=== PATIENT | female | born 1970 | race Caucasian/White ===

== ENCOUNTER 2020-09-10 10:38 | Inpatient (IN) ==
[2020-09-10] MEDS ORDERED: cefTRIAXone SODIUM 2,000 MG in DEXTROSE 5% 50 ML IV SCH (12:00)
[2020-09-10] MEDS ORDERED: ONDANSETRON INJ 2 MG/ML 2 ML VIAL IV STA ×2 (12:05→15:14)
[2020-09-10] MEDS ORDERED: MoRPHine SULFATE 10 MG/ML CARP/VIAL IV STA (12:05)
[2020-09-10] MEDS ORDERED: SODIUM CHLORIDE 0.9% 1000ML 1,000 ML IV SCH (12:06)
[2020-09-10 12:25] LABS: Basophils # (auto) 0.01 K/uL (0-0.2); Basophils % (auto) 0.1 %; Eosinophils # (auto) 0.01 K/uL (0-0.5); Eosinophils % (auto) 0.1 %; Hematocrit (blood only) 46.3 % (37-47); Hemoglobin 15.8 g/dL (12.0-16.0); Immature Granulocytes # (auto) 0.12 K/uL (0.00-0.02); Immature Granulocytes % (auto) 0.9 %; Lymphocytes % (auto) 4.7 %; Mean Corpuscular Hemoglobin 31.7 pg (25-34); Mean Corpuscular Hgb Conc 34.1 g/dL (32-36); Mean Corpuscular Volume 92.8 fL (80-100); Mean Platelet Volume 9.6 fL (7.4-10.4); Monocytes # (auto) 0.19 K/uL (0.11-0.59); Monocytes % (auto) 1.5 %; Neutrophils # (auto) 11.85 K/uL (1.4-6.5); Neutrophils % (auto) 92.7 %; Platelet Count 159 K/uL (130-400); RDW Coefficient of Variation 13.1 % (11.5-14.5); RDW Standard Deviation 44.8 fL (36.4-46.3); Red Blood Count 4.99 M/uL (4.2-5.4); White Blood Count 12.78 K/uL (4.8-10.8)
--- NOTE | 2020-09-10 12:25 | Emergency Department Note ---
Impression & Plan Calculus of proximal left ureter, Acute left flank pain, Leukocytosis, Elevated serum creatinine ED Provider Note CHIEF COMPLAINT: Left flank pain x4 days HISTORY OF PRESENT ILLNESS: Patient is a 50-year-old female with longstanding history of kidney stones who presents the emergency department for evaluation of left flank pain. Her symptoms started about 4 days ago, were initially managea ble, and even got a little bit better over the weekend, then increased markedly at 0400 today. She is nauseous but not vomiting. She notes a constant, aching pain in the left low back that radiates to the left lower quadrant. She tried taking some Toradol without relief. She notes some dysuria, and did have a low- grade fever, 100.9 this morning. She does have a history of diverticulitis, and admits that she feels like this is her kidney stone pain, but could also be diverticulitis. She does also have a history of complicated UTIs and sepsis. She currently rates her pain a 10/10. She is status post hysterectomy and cholecystectomy. REVIEW OF SYSTEMS: Review of systems as per HPI. All other systems reviewed were negative. 10 systems reviewed. PMH: Electronic medical records are reviewed and summarized as above/below. See Problem List. SOCIAL HISTORY: Patient lives at home. Smoker. PHYSICAL EXAM: Vital Signs: Reviewed Nurse's notes. CONSTITUTIONAL: Patient is an uncomfortable appearing 50-year-old female who is awake and alert and in mild distress due to her stated complaint. EYES: Pupils equal, round, reactive to light and accommodation. EOMs intact without nystagmus. Sclera are anicteric. ENT: Tympanic membranes intact, with normal landmarks. External canals are clear. Oral and nasopharynx are clear. Mucous membranes are moist, no lesions, tongue and gums appear normal. CARDIOVASCULAR: Regular rate and rhythm. Peripheral pulses easily palpable. RESPIRATORY: Breath sounds equal and clear to auscultation. ABDOMEN: Bowel sounds are present. Well-healed surgical scars are noted. Abdomen is soft, nondistended, nontender to percussion throughout, mildly tender to palpation in the left midabdomen. No guarding or rebound. INTEGUMENTARY: No lesions or rash, normal skin turgor. LYMPH: No lymphadenopathy. EMERGENCY DEPARTMENT COURSE: The patient was seen and assessed as above. Old records were reviewed, including her recent outpatient urology visits. She presents the emergency department for evaluation of acute left flank pain. She reports a fever at home. IV lock was initiated and laboratory studies were collected. CBC with differential, urinalysis and CMP were drawn. She was made NPO. She was given morphine 6 mg IV, Zofran 4 mg IV and given a liter bolus of normal saline solution, then 250 cc/h. Initially, KUB and retroperitoneal ultrasound were planned. Laboratory studies noted an elevated white count at 12,700, with left shift and bandemia noted. H&H is normal. Electrolytes are within normal limits. BUN and creatinine elevated at 21 and 1.36, which is new for the patient. Remainder of her transaminases are normal. Urine microscopy while not a clean-catch sample, is nitrate positive, 1+ leukocyte esterase and 10 to the 30 WBCs with 4+ bacteria. Culture is pending. Patient had not yet gone for imaging studies. Laboratory studies were reviewed with her. At this point, given the high white count and the urinalysis findings as well as the elevated kidney functions, I elected just to go with a CT with contrast. CT scan notes a 6 mm obstructing stone within the left UPJ with moderate left hydronephrosis. Bilateral nephrolithiasis noted. No bowel wall thickening or obstruction, no evidence for acute diverticulitis. Patient was reassessed. CT scan findings were reviewed with her. She was still feeling nauseous and pain with was beginning to return. She received an additional morphine 4 mg IV and Zofran 4 mg IV. With the laboratory findings as discussed above, did elect to cover her with ceftriaxone 2 g IV. Patient is concerned regarding the size and location of the stone, in the past she has had difficulty and does not think that she can pass the stone on her own. She also does not feel that she will be able to go home as uncomfortable as she is. I did speak with [facility], Dr. Adhikari, who recommended medical admission for IV antibiotics and hydration, there is not a need for emergent urologic intervention at this time, they will be happy to see the patient in the hospital. Consultation was placed with the [facility] Hospitalist service for further care and management. Please refer to admission H&P and orders for further information. Differential diagnoses entertained included Renal colic, UTI, pyelonephritis, diverticulitis, bowel obstruction, scarring or adhesions, infections, inflammatory bowel disease, among others. Past Med/Surg History Medical History Anxiety Chronic back pain GERD (gastroesophageal reflux disease) History of diverticulitis History of gastric polyp with biopsy Hx of hemorrhoids with banding Hx of sepsis spring 2018 r/t kidney stones Hyperlipidemia no meds Kidney stones Surgical History History of cholecystectomy History of colonoscopy History of dilatation and curettage History of esophagogastroduodenoscopy (EGD) History of hysterectomy History of lithotripsy 01/20/18 - MAC #3, ETT #7.0, HiLo, Grade 2 View History of strabismus surgery A CHILD Hx of cystoscopy [place] teeth extracted Family History Sister FHx: alpha 1 antitrypsin deficiency FHx: colon cancer, Onset Age: 44 Mother Diabetes Hypertension Father Diabetes Heart disease Hypertension Uncle Colon cancer Aunt Lung disease Social History Smoking Status: Current every day smoker Tobacco Type: Cigarettes Cigarettes Per Day: 20; Second Hand Exposure: No; Hx Alcohol Use: No Hx Substance Use: No Preferred Language: Greenlandic Communication Ability: Effective Visual Impairment: No Limitations Musical Instrument Maker Or Repairer Required: No Beliefs That Will Affect Care: None marital status: Current Living Situation: Family current occupational status: employed 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 Feels Safe at Home: Yes Assistive Devices: Glasses Allergies Allergies Allergy/AdvReac Type Severity Reaction Status Date / Time broccoli Allergy Severe sob and Verified 09/10/20 12:22 all over body swelling doxycycline Allergy Intermediate Vomiting, Verified 09/10/20 12:22 swelling, hives Home Meds Home Medications Medication Instructions Recorded Confirmed Lactobacillus reuteri 100 cell PO QAM 01/10/20 09/10/20 cholecalciferol (vitamin D3) 10 10 mcg PO QAM 07/02/20 09/10/20 mcg (400 unit) capsule acetaminophen [Tylenol] 325 mg PO QID PRN 07/23/20 09/10/20 calcium carbonate [Tums] 300 mg PO DAILY PRN 07/23/20 09/10/20 Results & Data (ED) Vital Signs Vital Signs - 24 hr 09/10/20 11:16 09/10/20 11:54 09/10/20 13:05 Temperature 37.3 C 37.2 C Temperature Source Skin Oral Pulse Rate 128 H Pulse Rate [Right] 91 H 66 Pulse Rhythm Regular Pulse Rhythm [Right] Regular Pulse Strength Normal Pulse Strength [Right] Normal Respiratory Rate 20 20 20 Respiratory Effort / Characteristics Non-Labored Spontaneous Non-Labored Spontaneous Non-Labored Spontaneous Respiratory Depth Normal Normal Normal Respiratory Pattern Regular Blood Pressure 111/68 Blood Pressure [Right Arm] 115/79 116/79 Blood Pressure Mean 82 Blood Pressure Mean [Right Arm] 91 91 Blood Pressure Position [Right Arm] Lying Lying Pulse Oximetry 94 99 99 Oxygen Delivery Method Room Air Room Air Room Air Sepsis Recent Fever Within 48 Hours No Sepsis New/Unexplained Change in Mental Status N/A Sepsis Action Taken by Nursing No Action Required 09/10/20 16:16 09/10/20 16:27 Temperature Temperature Source Pulse Rate 102 H Pulse Rate [Right] 91 H Pulse Rhythm Pulse Rhythm [Right] Regular Pulse Strength Pulse Strength [Right] Normal Respiratory Rate 14 20 Respiratory Effort / Characteristics Non-Labored Spontaneous Respiratory Depth Normal Respiratory Pattern Blood Pressure 117/69 Blood Pressure [Right Arm] 101/62 Blood Pressure Mean 85 Blood Pressure Mean [Right Arm] 75 Blood Pressure Position [Right Arm] Lying Pulse Oximetry 96 94 Oxygen Delivery Method Room Air Sepsis Recent Fever Within 48 Hours Sepsis New/Unexplained Change in Mental Status Sepsis Action Taken by Longterm Medications Current Medication List: was personally reviewed by me Laboratory Data Attestation: I reviewed the patient's lab results. Result diagrams: 09/10/20 11:48 09/10/20 11:48 Lab Results 09/10/20 09/10/20 09/10/20 Range/Units 11:48 11:48 11:48 WBC 12.78 H (4.8-10.8) K/uL RBC 4.99 (4.2-5.4) M/uL Hgb 15.8 (12.0-16.0) g/dL Hct 46.3 (37-47) % MCV 92.8 (80-100) fL MCH 31.7 (25-34) pg MCHC 34.1 (32-36) g/dL RDW Std Deviation 44.8 (36.4-46.3) fL RDW Coeff of Luan 13.1 (11.5-14.5) % Plt Count 159 (130-400) K/uL MPV 9.6 (7.4-10.4) fL Immature Gran % (Auto) 0.9 % Neut % (Auto) 92.7 % Lymph % (Auto) 4.7 % [place] % (Auto) 1.5 % Eos % (Auto) 0.1 % Baso % (Auto) 0.1 % Neut # (Auto) 11.85 H (1.4-6.5) K/uL Lymph # (Auto) 0.60 L (1.2-3.4) K/uL [place] # (Auto) 0.19 (0.11-0.59) K/uL Eos # (Auto) 0.01 (0-0.5) K/uL Baso # (Auto) 0.01 (0-0.2) K/uL Immature Gran # (Auto) 0.12 H (0.00-0.02) K/uL Sodium 140 (136-145) mmol/L Potassium 3.6 (3.5-5.1) mmol/L Chloride 110 H (98-107) mmol/L Carbon Dioxide 23 (21-32) mmol/L Anion Gap 7.0 (3-11) BUN 21 H (7-18) mg/dl Creatinine 1.36 H (0.6-1.2) mg/dl Est Cr Clr Drug Dosing 51.7 ml/min Est GFR ( Amer) 53.2 ml/min Est GFR (Non-Af Amer) 45.9 ml/min BUN/Creatinine Ratio 15.5 (10-20) Glucose 110 H (70-99) mg/dl Calcium 9.1 (8.5-10.1) mg/dl Total Bilirubin 0.8 (0.2-1) mg/dl AST 75 H (15-37) U/L ALT 65 (12-78) U/L Alkaline Phosphatase 80 (45-117) U/L Total Protein 7.1 (6.4-8.2) gm/dl Albumin 3.9 (3.4-5.0) gm/dl Globulin 3.2 (2.5-4.0) gm/dl Albumin/Globulin Ratio 1.2 (0.9-2) Urine Color Yellow Urine Appearance Clear (Clear) Urine pH 5.5 (4.5-7.5) Ur Specific [place] 1.018 (1.000-1.030) Urine Protein 1+ H (Negative) Urine Glucose (UA) Negative (Negative) Urine Ketones Negative (Negative) Urine Blood Trace H (Negative) Urine Nitrite Positive A (Negative) Urine Bilirubin Negative (Negative) Urine Urobilinogen Negative (Negative) Ur Leukocyte Esterase 1+ H (Negative) Urine WBC (Auto) 10-30 H (0-5) /hpf Urine RBC (Auto) 0-4 (0-4) /hpf U Hyaline Cast (Auto) 1-5 (0-5) /lpf U Epithel Cells (Auto) >30 H (0-5) /lpf Urine Bacteria (Auto) 4+ H (Negative) COVID-19 Eval Order SARS-CoV-2 (PCR) (Negative) 09/10/20 09/10/20 Range/Units 16:46 16:46 WBC (4.8-10.8) K/uL RBC (4.2-5.4) M/uL Hgb (12.0-16.0) g/dL Hct (37-47) % MCV (80-100) fL MCH (25-34) pg MCHC (32-36) g/dL RDW Std Deviation (36.4-46.3) fL RDW Coeff of Luan (11.5-14.5) % Plt Count (130-400) K/uL MPV (7.4-10.4) fL Immature Gran % (Auto) % Neut % (Auto) % Lymph % (Auto) % [place] % (Auto) % Eos % (Auto) % Baso % (Auto) % Neut # (Auto) (1.4-6.5) K/uL Lymph # (Auto) (1.2-3.4) K/uL [place] # (Auto) (0.11-0.59) K/uL Eos # (Auto) (0-0.5) K/uL Baso # (Auto) (0-0.2) K/uL Immature Gran # (Auto) (0.00-0.02) K/uL Sodium (136-145) mmol/L Potassium (3.5-5.1) mmol/L Chloride (98-107) mmol/L Carbon Dioxide (21-32) mmol/L Anion Gap (3-11) BUN (7-18) mg/dl Creatinine (0.6-1.2) mg/dl Est Cr Clr Drug Dosing ml/min Est GFR ( Amer) ml/min Est GFR (Non-Af Amer) ml/min BUN/Creatinine Ratio (10-20) Glucose (70-99) mg/dl Calcium (8.5-10.1) mg/dl Total Bilirubin (0.2-1) mg/dl AST (15-37) U/L ALT (12-78) U/L Alkaline Phosphatase (45-117) U/L Total Protein (6.4-8.2) gm/dl Albumin (3.4-5.0) gm/dl Globulin (2.5-4.0) gm/dl Albumin/Globulin Ratio (0.9-2) Urine Color Urine Appearance (Clear) Urine pH (4.5-7.5) Ur Specific [place] (1.000-1.030) Urine Protein (Negative) Urine Glucose (UA) (Negative) Urine Ketones (Negative) Urine Blood (Negative) Urine Nitrite (Negative) Urine Bilirubin (Negative) Urine Urobilinogen (Negative) Ur Leukocyte Esterase (Negative) Urine WBC (Auto) (0-5) /hpf Urine RBC (Auto) (0-4) /hpf U Hyaline Cast (Auto) (0-5) /lpf U Epithel Cells (Auto) (0-5) /lpf Urine Bacteria (Auto) (Negative) COVID-19 Eval Order Covid19 at [facility] SARS-CoV-2 (PCR) NEGATIVE (Negative) Administered Medications Sodium Chloride (Nss 1000ml) 1,000 mls @ 250 mls/hr IV .Q4H DEBRA Stop: 10/10/20 12:14 Last Admin: 09/10/20 19:43 Dose: 250 mls/hr Documented by: [id number] Infusion: 09/10/20 18:32 Dose: 0 mls/hr Documented by: [id number] Admin: 09/10/20 14:25 Dose: 250 mls/hr Documented by: [id number] Discontinued Medications Sodium Chloride (Nss 1000ml) 1,000 mls @ 999 mls/hr IV .Q1H1M DEBRA Stop: 09/10/20 13:06 Last Infusion: 09/10/20 13:21 Dose: 0 mls/hr Documented by: [id number] Admin: 09/10/20 12:19 Dose: 999 mls/hr Documented by: [id number] Ceftriaxone Sodium (Rocephin) 2,000 mg in 70 mls @ 140 mls/hr IV NOW STA Stop: 09/10/20 15:43 Last Infusion: 09/10/20 16:13 Dose: 0 mls/hr Documented by: [id number] Admin: 09/10/20 15:29 Dose: 140 mls/hr Documented by: [id number] Ioversol (Optiray 320 100ml) 93 ml IV ONCE ONE Stop: 09/10/20 14:12 Last Admin: 09/10/20 14:12 Dose: 93 ml Documented by: [id number] Morphine Sulfate (Morphine Sulfate 10 Mg/Ml Carp/Vial) 6 mg IV NOW STA Stop: 09/10/20 12:06 Last Admin: 09/10/20 12:13 Dose: 6 mg Documented by: [id number] Morphine Sulfate (Morphine Sulfate 4 Mg/Ml 1 Ml Carp\Vial) 4 mg IV Q1H PRN PRN Reason: Pain Stop: 09/24/20 12:04 Last Admin: 09/10/20 16:49 Dose: 4 mg Documented by: [id number] Admin: 09/10/20 15:29 Dose: 4 mg Documented by: [id number] Admin: 09/10/20 13:57 Dose: 4 mg Documented by: [id number] Ondansetron HCl (Ondansetron Inj 2 Mg/Ml 2 Ml Vial) 4 mg IV NOW STA Stop: 09/10/20 12:06 Last Admin: 09/10/20 12:13 Dose: 4 mg Documented by: [id number] Ondansetron HCl (Ondansetron Inj 2 Mg/Ml 2 Ml Vial) 4 mg IV NOW STA Stop: 09/10/20 15:15 Last Admin: 09/10/20 15:29 Dose: 4 mg Documented by: [id number] Imaging Data Attestation: I personally reviewed and interpreted this imaging study as fo llows: Radiologist's Impression: Abdomen/Pelvis CT 09/10/20 13:[address] WITH IV CONTRAST CT DOSE: 679.10 mGy.cm HISTORY: LEFT FLANK PAIN, FEVER, STONES VS TIC DISEASE TECHNIQUE: Multiaxial CT images of the abdomen and pelvis were performed fo llowing the use of intravenous contrast. A dose lowering technique was utilized adhering to the principles of ALARA. COMPARISON STUDY: Abdomen and pelvis CT 07/04/2020. FINDINGS: Mild dependent changes seen within the right lung base. There is a sma ll hiatus hernia. No pneumoperitoneum. No pneumatosis. No fractures within the visualized osseous structures. Mild hepatic steatosis. Mild intrahepatic bile duct dilatation, unchanged. This is likely due to the patient's postcholecystectomy state. The main portal vein is patent. The pancreas, adrenal glands, and spleen are unremarkable. Multiple bilateral renal calculi suggesting medullary nephrocalcinosis. Dominant stone within the right kidney measures 7 mm. Dominant stone within the lower pole the left kidney measures 7 mm. Stable 1.5 cm exophytic right renal cyst. No retroperitoneal lymphadenopathy. Mild calcified plaque within the normal caliber abdominal aorta. There is a 4 mm hypodense lesion within the upper pole the left kidney. This is densely too small to characterize but favors a cyst. There is left perinephric edema and a delayed left nephrogram secondary to the moderate left hydronephrosis. There is a 6 mm obstructing stone within the left ureteropelvic junction. No right-sided hydronephrosis. The bladder is unremarkable. The uterus is surgically absent. Colonic diverticulosis. No evidence for acute diverticulitis. No bowel wall thickening or obstruction. Normal appendix. IMPRESSION: 1. A 6 mm obstructing stone within the left ureteropelvic junction resulting in moderate left hydronephrosis. 2. 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 3. Postoperative changes as described above. 4. No bowel wall thickening or obstruction. 5. Colonic diverticulosis. ACT 112: Negative or not required by law. Electronically signed by: Francisco J Mendoza M.D. 09/10/2020 2:45 PM Discharge Plan Visit Data Chief Complaint: Kidney Stone Stated Complaint: KIDNEY STONE ED Provider: Maurice Fernandez ED Midlevel Provider: Ron Nava Discharge Problem: Calculus of proximal left ureter, Acute left flank pain, Leukocytosis, Elevated serum creatinine Patient Disposition: Being Evaluated by Hospitalist Discharge Instructions Interventions: ED Discharge Assessment Last Done: 09/10/20 19:26
[2020-09-10 12:42] LABS: Albumin Level 3.9 gm/dl (3.4-5.0); BUN Creatinine Ratio 15.5 (10-20); Calcium 9.1 mg/dl (8.5-10.1); Creatinine Clr Calc Pharmacy 51.7 ml/min; Est GFR (African American) 53.2 ml/min; Est GFR (Non-African American) 45.9 ml/min; Potassium 3.6 mmol/L (3.5-5.1)
[2020-09-10 12:44] LABS: Appearance Urine Clear (Clear); Bacteria Urine Automated 4+ (Negative); Bilirubin Urine Negative (Negative); Blood Urine Trace (Negative); Color Urine Yellow; Epithelial Cell Urine Auto >30 /lpf (0-5); Glucose Urine UA Negative (Negative); Ketones Urine Negative (Negative); Leukocyte Esterase Urine 1+ (Negative); Nitrite Urine Positive (Negative); Protein Urine 1+ (Negative); RBC Urine Automated 0-4 /hpf (0-4); Specific Gravity Urine 1.018 (1.000-1.030); Urobilinogen Urine Negative (Negative); pH Urine 5.5 (4.5-7.5)
[2020-09-10 12:45] LABS: Albumin Globulin Ratio 1.2 (0.9-2); Bilirubin,Total 0.8 mg/dl (0.2-1); Globulin 3.2 gm/dl (2.5-4.0); Total Protein 7.1 gm/dl (6.4-8.2)
[2020-09-10] MEDS: MoRPHine SULFATE 4 MG/ML 1 ML CARP\\VIAL IV PRN ×3 (13:57→16:49)
[2020-09-10] MEDS ORDERED: OPTIRAY 320 100ml IV ONE (14:11)
[2020-09-10] MEDS: SODIUM CHLORIDE 0.9% 1000ML 1,000 ML IV SCH ×3 (14:25→21:21)
--- NOTE | 2020-09-10 14:46 | CT Scan Report ---
ABDOMEN AND PELVIS CT WITH IV CONTRAST CT DOSE: 679.10 mGy.cm HISTORY: LEFT FLANK PAIN, FEVER, STONES VS TIC DISEASE TECHNIQUE: Multiaxial CT images of the abdomen and pelvis were performed following the use of intrave nous contrast. A dose lowering technique was utilized adhering to the principles of ALARA. COMPARISON STUDY: Abdomen and pelvis CT 07/04/2020. FINDINGS: Mild dependent changes seen within the right lung base. There is a small hiatus hernia. No pneumoperitoneum. No pneumatosis. No fractures within the visualized osseous structures. Mild hepatic steatosis. Mild intrahepatic bile duct dilatation, unchanged. This is likely due to the patient's po stcholecystectomy state. The main portal vein is patent. The pancreas, adrenal glands, and spleen are unremarkable. Multiple bilateral renal calculi suggesting medullary nephrocalcinosis. Dominant stone within the right kidney measures 7 mm. Dominant stone within the lower pole the left kidney measures 7 mm. Stable 1.5 cm exophytic right renal cyst. No retroperitoneal lymphadenopathy. Mild calcified p laque within the normal caliber abdominal aorta. There is a 4 mm hypodense lesion within the upper po le the left kidney. This is densely too small to characterize but favors a cyst. There is left perine phric edema and a delayed left nephrogram secondary to the moderate left hydronephrosis. There is a 6 mm obstructing stone within the left ureteropelvic junction. No right-sided hydronephrosis. The blad osman is unremarkable. The uterus is surgically absent. Colonic diverticulosis. No evidence for acute d iverticulitis. No bowel wall thickening or obstruction. Normal appendix. IMPRESSION: 1. A 6 mm obstructing stone within the left ureteropelvic junction resulting in moderate left hydrone phrosis. 2. 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 3. Postoperative changes as described above. 4. No bowel wall thickening or obstruction. 5. Colonic diverticulosis. ACT 112: Negative or not required by law. Electronically signed by: Francisco J Mendoza M.D. 09/10/2020 2:45 PM
[2020-09-10] MEDS ORDERED: cefTRIAXone SODIUM 2,000 MG/70 ML BAG IV STA (15:14)
[2020-09-10] MEDS ORDERED: ONDANSETRON INJ 2 MG/ML 2 ML VIAL IV PRN (18:09)
[2020-09-10] MEDS ORDERED: MoRPHine SULFATE 4 MG/ML 1 ML CARP\\VIAL IV PRN (18:19)
--- NOTE | 2020-09-10 18:21 | History & Physical Report ---
Date of Service September 10, 2020 Assessment & Plan (1) Calculus of proximal left ureter: possible UTI due to abnormal urine. will place on antibiotics: ceftriaxone continue morphine and zofran patient will benefit from stent. will consult urology (2) Acute left flank pain: as above. (3) Tobacco abuse: will place nicotine patch. History of Present Illness Chief Complaint: left kidney stone Primary Care Provider: Zhao Chowdary MD 50 yo female with recurrent kidney stones from 1990. She has some of the pass spontaneously while others have required lithotripsy. She was recently treated with lithotripsy for a right kidney stone about a month ago. Patient reports that she has had general malaise, dull left flank pain that radiates to her groin with N/V and subjective fever for the past 4 days. She reports that due to the nausea, she has not been able to tolerate anything by mouth and is not interested in eating at this momenet. CT scan of the abdomen and pelvis showed a 6 mm obstructing kidney stone in the left ureteropelvic junction resulting in hydronephrosis. Urology was informed, and recommended to be admitted to the hospitalist [facility] and they will be consulted. Allergies Allergy/AdvReac Type Severity Reaction Status Date / Time broccoli Allergy Severe sob and Verified 09/10/20 12:22 all over body swelling doxycycline Allergy Intermediate Vomiting, Verified 09/10/20 12:22 swelling, hives Home Medications Medication Instructions Recorded Confirmed Type Lactobacillus reuteri 100 cell PO QAM 01/10/20 09/10/20 History cholecalciferol (vitamin D3) 10 10 mcg PO QAM 07/02/20 09/10/20 History mcg (400 unit) capsule acetaminophen [Tylenol] 325 mg PO QID PRN 07/23/20 09/10/20 History calcium carbonate [Tums] 300 mg PO DAILY PRN 07/23/20 09/10/20 History Past Med/Surg History Medical History Anxiety Chronic back pain GERD (gastroesophageal reflux disease) History of diverticulitis History of gastric polyp with biopsy Hx of hemorrhoids with banding Hx of sepsis spring 2018 r/t kidney stones Hyperlipidemia no meds Kidney stones Surgical History History of cholecystectomy History of colonoscopy History of dilatation and curettage History of esophagogastroduodenoscopy (EGD) History of hysterectomy History of lithotripsy 01/20/18 - MAC #3, ETT #7.0, HiLo, Grade 2 View History of strabismus surgery A CHILD Hx of cystoscopy [place] teeth extracted Family History Sister FHx: alpha 1 antitrypsin deficiency FHx: colon cancer, Onset Age: 44 Mother Diabetes Hypertension Father Diabetes Heart disease Hypertension Uncle Colon cancer Aunt Lung disease Social History Smoking Status: Current every day smoker Tobacco Type: Cigarettes Cigarettes Per Day: 20; Second Hand Exposure: No; Hx Alcohol Use: No Hx Substance Use: No Preferred Language: Italian Communication Ability: Effective Visual Impairment: No Limitations Mortgage Underwriter Required: No Beliefs That Will Affect Care: None marital status: Current Living Situation: Family current occupational status: 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 Feels Safe at Home: Yes Assistive Devices: None Review of Systems Constitutional: + fever and + anorexia Eyes: no diplopia Ear, Nose, Mouth, Throat: no ear pain and no ear trauma Respiratory: no cough Cardiovascular: no chest pain with activity Gastrointestinal: no bloating Genitourinary: + flank pain Musculoskeletal: no radicular pain Integumentary: no rash Neurologic: no falls Psychiatric: no hopelessness Endocrine: no polydipsia Hematologic / Lymphatic: no coagulopathy Physical Exam Constitutional: WD/WN, vitals as above well developed Eyes: PERRL, conjunctivae normal, anicteric sclerae ENMT: external ear and nose normal, oropharynx normal Neck: trachea midline, no thyromegaly Respiratory: normal respiratory effort, lungs clear to auscultation Cardiovascular: RRR, no murmur, no edema Gastrointestinal (Abdomen): normal bowel sounds, soft, nontender, no hepatosplenomegaly Musculoskeletal: no cyanosis or clubbing, extremities motor strength 5/5 Left CVA tenderness Neurologic: PERRL, EOMI, accommodation nl, no face palsy, no dysarthria Psychiatric: A+Ox3, euthymic affect Results & Data Results & Data ([facility]) Vital Signs (Past 12 Hours) Vital Signs Temp Pulse Pulse Resp BP BP Pulse Ox 09/10/20 16:27 102 H 20 117/69 94 09/10/20 16:16 91 H 14 101/62 96 09/10/20 13:05 66 20 116/79 99 09/10/20 11:54 37.2 C 91 H 20 115/79 99 09/10/20 11:16 37.3 C 128 H 20 111/68 94 PG Care Time/CCT Total # of Minutes Spent Total Time Spent with Patient: Total time spent is greater than 50% in coordination of care (as documented) at patient's floor/unit and/or counseling patient: Coding Level of Care Code 87528 Initial Inpt Care Lvl 2 Diagnoses Calculus of proximal left ureter N20.1 Acute left flank pain R10.9 Tobacco abuse Z72.0
--- NOTE | 2020-09-10 20:36 | Urology Consultation ---
Date of Consultation September 10, 2020 Assessment & Plan (1) Calculus of proximal left ureter: Patient has been admitted by the hospitalists proceeding as follows: She is noted to have acute kidney injury. I suspect that this is due to prerenal conditions such as poor oral intake along with her nausea vomiting. She is receiving IV fluids which should continue Urinalysis is suggestive of urinary tract infection and she has been placed on Rocephin which should continue Continue analgesics Continue antiemetics Due to the patient's reported fevers, acute kidney injury, continued pain, hypotension, and general lethargy there is concern the patient is becoming septic. Because of this I discussed case with Dr. Adhikari and he is planning on performing a cystoscopy with possible stent placement this evening. Patient has expressed her understanding and is in agreement. Additional recommendations were made based on operative findings and patient's clinical course as it unfolds ATTENDING NOTE: Risks and benefits discussed at length for procedure. These include bleeding, infection, injury to surrounding tissues or organs, and risks associated with anesthesia. Patient states understanding and agrees to proceed. Will sign consent and proceed. Agree with above. Independently reviewed and evaluated. Plan proceed with Cystoscopy and left stent. History of Present Illness Reason for Consultation: Nephrolithiasis Attending Physician: Chris Madison History of Present Illness Is a 50-year-old female with a longstanding history of kidney stones. The patient says that she has been having trouble with this since 1990. She says she has had episodes where she has been able to pass the stones but she has also had episodes where she required lithotripsy. Her most recent lithotripsy prior to this admission was in mid July of this year at which time she had a lithotripsy performed secondary to an 8 mm right-sided kidney stone. Patient presented to the hospital this admission secondary to 4 days of left-sided flank pain that radiated to her groin. She has had associated nausea vomiting and has had fever as high as 101. She says the pain would come and go but became so severe that she presented to the emergency department.She notes that she has not eaten anything solid in approximate 24 hours. She said that over the past several hours she did drink some liquids however due to her nausea vomiting she has thrown it all up. Since admission the patient has had labs and imaging which independently reviewed. CT scan of the abdomen and pelvis showed a 6 mm obstructing kidney stone in the left ureteropelvic junction resulting in hydronephrosis. She did have labs where her white blood cell count was noted to be 12.7. Her hemoglobin, hematocrit, platelet count were within normal range. Chemistry profile showed her sodium and potassium were both within normal range. BUN and creatinine were both elevated at 21 and 1.3. A Covid test was performed and was noted to be negative. She did have a urinalysis that showed positive nitrate, positive leukocyte Estrace, and 10-30 white blood cells per high-power field. She was also noted to have 4+ bacteria. At the time of my exam the patient was in pain and she appeared lethargic. Allergies Allergy/AdvReac Type Severity Reaction Status Date / Time broccoli Allergy Severe sob and Verified 09/10/20 12:22 all over body swelling doxycycline Allergy Intermediate Vomiting, Verified 09/10/20 12:22 swelling, hives Home Medications Medication Instructions Recorded Confirmed Type Lactobacillus reuteri 100 cell PO QAM 01/10/20 09/10/20 History cholecalciferol (vitamin D3) 10 10 mcg PO QAM 07/02/20 09/10/20 History mcg (400 unit) capsule acetaminophen [Tylenol] 325 mg PO QID PRN 07/23/20 09/10/20 History calcium carbonate [Tums] 300 mg PO DAILY PRN 07/23/20 09/10/20 History Patient History Medical History Anxiety Chronic back pain GERD (gastroesophageal reflux disease) History of diverticulitis History of gastric polyp with biopsy Hx of hemorrhoids with banding Hx of sepsis spring 2018 r/t kidney stones Hyperlipidemia no meds Kidney stones Surgical History History of cholecystectomy History of colonoscopy History of dilatation and curettage History of esophagogastroduodenoscopy (EGD) History of hysterectomy History of lithotripsy 01/20/18 - MAC #3, ETT #7.0, HiLo, Grade 2 View History of strabismus surgery A CHILD Hx of cystoscopy [place] teeth extracted Family History Sister FHx: alpha 1 antitrypsin deficiency FHx: colon cancer, Onset Age: 44 Mother Diabetes Hypertension Father Diabetes Heart disease Hypertension Uncle Colon cancer Aunt Lung disease Social History Smoking Status: Current every day smoker Tobacco Type: Cigarettes Cigarettes Per Day: 20; Second Hand Exposure: No; Do You Dip or Chew Tobacco: No; Tobacco Cessation Education Requested by Patient: No Hx Alcohol Use: No Hx Substance Use: No Preferred Language: Tamazight Communication Ability: Effective Visual Impairment: No Limitations Emergency Dispatch Operator Required: No Beliefs That Will Affect Care: None marital status: Current Living Situation: Family current occupational status: employed current occupation: [employer] Other Information That Helps Us Care for You: No Feels Safe at Home: Yes Safety Concerns: Feels Safe At This Time Assistive Devices: None Review of Systems Constitutional: + fever and + chills Eyes: no diplopia Ear, Nose, Mouth, Throat: no ear pain Respiratory: no cough and no dyspnea Cardiovascular: no chest pain Gastrointestinal: + nausea and + vomiting; no abdominal pain Genitourinary: + flank pain (Left-sided); no dysuria Musculoskeletal: + back pain (Left-sided flank pain) Integumentary: no rash Neurologic: no localized weakness Physical Exam Constitutional: well developed, well nourished and + ill appearing; no acute distress Eyes: no conjunctival abnormality ENMT: Ears: no hearing impairment Neck: trachea midline Respiratory: normal respiratory effort; no respiratory distress and no labored breathing Cardiovascular: Rate/Rhythm: regular rate and regular rhythm Gastrointestinal (Abdomen): Percussion/Palpation: abdomen soft; abdomen nontender Musculoskeletal: No calf tenderness Skin: no rashes, warm and dry Neurologic: moves all extremities Patient appears generally lethargic but does respond to verbal stimuli Psychiatric: Orientation: alert and oriented x 3 Affect: + flat affect Genitourinary: + CVA tenderness (Left-sided CVA tenderness noted with percussion) Results & Data ([facility]) Vital Signs (Past 12 Hours) Vital Signs Temp Pulse Pulse Resp BP BP Pulse Ox 09/10/20 19:38 36.5 C 85 14 97/55 L 93 09/10/20 16:27 102 H 20 117/69 94 09/10/20 16:16 91 H 14 101/62 96 09/10/20 13:05 66 20 116/79 99 09/10/20 11:54 37.2 C 91 H 20 115/79 99 09/10/20 11:16 37.3 C 128 H 20 111/68 94 PG Care Time/CCT Total # of Minutes Spent Total Time Spent with Patient: Total time spent is greater than 50% in coordination of care (as documented) at patient's floor/unit and/or counseling patient: Coding Level of Care Code 48368 Inpt Consult Level 5 Diagnoses Calculus of proximal left ureter N20.1
[2020-09-10] MEDS ORDERED: MIDAZOLAM HCL 1 MG/ML 2ML VIAL ONE (20:56)
[2020-09-10] MEDS ORDERED: fentaNYL citrate 100 MCG/2 ML VIAL ONE (20:56)
[2020-09-10] MEDS ORDERED: LIDOCAINE 2% 2 ML VIAL/AMP(20MG/ML) INFIL ONE (20:56)
[2020-09-10] MEDS ORDERED: PROPOFOL IV EMULSION 10 MG/ML 20 ML VIAL IV ONE (20:57)
--- NOTE | 2020-09-10 21:19 | Anesthesiology Consultation ---
Date of Service September 10, 2020 Assessment & Plan Chart Review Chart Review: Acceptable Risk for Surgery Consults Requested none History Surgery Operation Date: 09/10/20 21:00 Proposed Procedures p Cystoscopy, Left Ureteral Stent Insertion(Left) - Damon Adhikari DO Height/Weight Height: 5 ft 3 in Weight: 85 kg Allergies Allergy/AdvReac Type Severity Reaction Status Date / Time broccoli Allergy Severe sob and Verified 09/10/20 12:22 all over body swelling doxycycline Allergy Intermediate Vomiting, Verified 09/10/20 12:22 swelling, hives Medications Home Medications Medication Instructions Recorded Confirmed Last Taken Lactobacillus reuteri 100 cell PO QAM 01/10/20 09/10/20 08/09/20 cholecalciferol (vitamin D3) 10 10 mcg PO QAM 07/02/20 09/10/20 08/09/20 mcg (400 unit) capsule acetaminophen [Tylenol] 325 mg PO QID PRN 07/23/20 09/10/20 08/09/20 22:30 calcium carbonate [Tums] 300 mg PO DAILY PRN 07/23/20 09/10/20 Unknown Active Medications Generic Name Dose Route Start Last Admin Trade Name Freq PRN Reason Stop Dose Admin Sodium Chloride 1,000 mls @ 250 mls/hr 09/10/20 12:15 09/10/20 19:43 Nss 1000ml IV 10/10/20 12:14 250 mls/hr .Q4H DEBRA Administration NPO Date Last Intake of Fluids: 09/10/20 Last Intake of Fluids Comment: [place] Date Last Intake of Solids: 09/10/20 Last Intake of Solids Comment: crackers Past Medical History Medical History Anxiety Chronic back pain GERD (gastroesophageal reflux disease) History of diverticulitis History of gastric polyp with biopsy Hx of hemorrhoids with banding Hx of sepsis spring 2018 r/t kidney stones Hyperlipidemia no meds Kidney stones Past Family History Family History Sister FHx: alpha 1 antitrypsin deficiency FHx: colon cancer, Onset Age: 44 Mother Diabetes Hypertension Father Diabetes Heart disease Hypertension Uncle Colon cancer Aunt Lung disease Past Surgical History Surgical History History of cholecystectomy History of colonoscopy History of dilatation and curettage History of esophagogastroduodenoscopy (EGD) History of hysterectomy History of lithotripsy 01/20/18 - MAC #3, ETT #7.0, HiLo, Grade 2 View History of strabismus surgery A CHILD Hx of cystoscopy [place] teeth extracted Social History Smoking Status: Current every day smoker tobacco type: cigarettes Smoking cigarettes per day: 20 Do You Dip or Chew Tobacco: No Hx Alcohol Use: No Hx Substance Use: No substance use type: does not use Physical Exam Vital Signs Last Vital Signs Temp 36.5 C 09/10/20 19:38 Pulse 85 09/10/20 19:38 Resp 14 09/10/20 19:38 BP 97/55 L 09/10/20 19:38 Pulse Ox 93 09/10/20 19:38 Testing Laboratory Results 09/10/20 11:48 09/10/20 11:48 Urine Color Yellow 09/10/20 11:48 Urine Appearance Clear (Clear) 09/10/20 11:48 Urine pH 5.5 (4.5-7.5) 09/10/20 11:48 Ur Specific Roundup 1.018 (1.000-1.030) 09/10/20 11:48 Urine Protein 1+ (Negative) H 09/10/20 11:48 Urine Glucose (UA) Negative (Negative) 09/10/20 11:48 Urine Ketones Negative (Negative) 09/10/20 11:48 Urine Nitrite Positive (Negative) A 09/10/20 11:48 Ur Leukocyte Esterase 1+ (Negative) H 09/10/20 11:48 Urine WBC (Auto) 10-30 /hpf (0-5) H 09/10/20 11:48 Urine RBC (Auto) 0-4 /hpf (0-4) 09/10/20 11:48 U Hyaline Cast (Auto) 1-5 /lpf (0-5) 09/10/20 11:48 U Epithel Cells (Auto) >30 /lpf (0-5) H 09/10/20 11:48 Urine Bacteria (Auto) 4+ (Negative) H 09/10/20 11:48
--- NOTE | 2020-09-10 21:49 | Operative Report ---
PG Post Operative Report Pre & Post Diagnosis Obstructing Left Ureteral Stone Same Operation Date: 09/10/20 21:00 <No data on this case meets the specified criteria> I identified the patient and participated in the time-out.: Yes Procedure Cystoscopy with left retrograde pyelogram and left stent. 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 Specimens None Drains 6 Fr Multilength Anesthesia Type MAC Complications none Disposition Disposition: Recovery Room Indications Patient with obstruction. Risks and benefits discussed at length. Description of Procedure Patient was consented and brought back to the operating room. Patient was placed under anesthesia in the supine position and moved to the dorsal lithotomy position. Patient was prepped and draped in the regular sterile fashion. A time out was completed. A 30degree Cystoscope was placed into the bladder and the entire bladder was examined. The UO's were identified. The UO was cannulized with a catheter and a retrograde pyelogram was completed. A wire was then placed. With the wire in place, a 6 Fr Double J stent was placed. It was confirmed with fluoroscopy. With the stent in place, the bladder was emptied. The scope was removed. The patient was cleaned, aroused from anesthesia, and transferred to the pacu in stable condition having tolerated the procedure well with no complications. I was present and participated in all aspects of the procedure. The patient will be monitored in the PACU until transferred. Will plan to keep stent for 1-2 weeks and treat stone at that time. I attest to the content of the Intraoperative Record and any orders documented therein. Any exceptions are noted below.
--- NOTE | 2020-09-10 22:25 | Anesthesiology Progress Note ---
Date of Service September 10, 2020 Anesthesia Post Procedure Vital Signs Vital Signs: Temp Pulse Pulse Pulse Resp BP BP 09/10/20 22:15 37.3 C 88 16 109/75 09/10/20 22:05 82 16 97/56 L 09/10/20 21:55 37.3 C 88 18 83/60 L 09/10/20 19:38 36.5 C 85 14 09/10/20 16:27 102 H 20 117/69 09/10/20 16:16 91 H 14 09/10/20 13:05 66 20 09/10/20 11:54 37.2 C 91 H 20 09/10/20 11:16 37.3 C 128 H 20 111/68 BP Pulse Ox 09/10/20 22:15 94 09/10/20 22:05 94 09/10/20 21:55 96 09/10/20 19:38 97/55 L 93 09/10/20 16:27 94 09/10/20 16:16 101/62 96 09/10/20 13:05 116/79 99 09/10/20 11:54 115/79 99 09/10/20 11:16 94 Pain Intensity Left Flank: Pain Intensity: 8 Transfer of Care Handoff Completed per policy Notes Mental Status: alert / awake / arousable and participated in evaluation Patient Amnestic to Procedure: Yes Nausea / Vomiting: adequately controlled Pain: adequately controlled Airway Patency, RR, SpO2: stable & adequate BP & HR: stable & adequate Hydration State: stable & adequate Anesthetic Complications: no major complications apparent
[2020-09-11] MEDS: SODIUM CHLORIDE 0.9% 1000ML 1,000 ML IV SCH ×3 (03:13→10:47)
[2020-09-11 05:57] LABS: Hematocrit (blood only) 35.3 % (37-47); Hemoglobin 11.8 g/dL (12.0-16.0); Mean Corpuscular Hgb Conc 33.4 g/dL (32-36); Mean Corpuscular Volume 92.7 fL (80-100); Mean Platelet Volume 9.4 fL (7.4-10.4); Platelet Count 113 K/uL (130-400); RDW Coefficient of Variation 13.7 % (11.5-14.5); RDW Standard Deviation 46.9 fL (36.4-46.3); Red Blood Count 3.81 M/uL (4.2-5.4); White Blood Count 24.64 K/uL (4.8-10.8)
[2020-09-11 06:38] LABS: BUN Creatinine Ratio 20.6 (10-20); Calcium 7.1 mg/dl (8.5-10.1); Creatinine Clr Calc Pharmacy 64.6 ml/min; Est GFR (African American) 68.8 ml/min; Est GFR (Non-African American) 59.3 ml/min; Potassium 4.2 mmol/L (3.5-5.1)
--- NOTE | 2020-09-11 07:59 | Fluoroscopy Report ---
FL KUB CLINICAL HISTORY: LT CYSTO STENT COMPARISON STUDY: Abdomen and pelvis CT 09/10/2020. FLUOROSCOPY TIME: 12 seconds. FINDINGS: 5 fluoroscopic spot images of the abdomen and pelvis demonstrate retrograde opacification o f the left renal collecting system followed by placement of a left ureteral stent. The ureteral stent appears in good position. IMPRESSION: Fluoroscopy provided for left ureteral stent placement which appears in good position. ACT 112: Negative or not required by law. Electronically signed by: Francisco J Mendoza M.D. 09/11/2020 7:58 AM
[2020-09-11] MEDS: NICOTINE 14 MG/24 HR PATCH TD SCH (09:04)
--- NOTE | 2020-09-11 09:37 | Urology Progress Note ---
Date of Service September 11, 2020 Assessment & Plan (1) Calculus of proximal left ureter: (2) S/P ureteral stent placement: (3) UTI (urinary tract infection): 50 yo F POD #1 s/p cystoscopy and left stent placement. - Doing well, progressing as expected. - Afebrile, lab work reviewed - creatinine improved to 1.10, WBC increased to 24.64. - UC&S prelim growing gram negative bacilli - on IV Ceftriaxone, follow cultures. - Continue supportive care, antibiotics, and management per primary service. - Recommend home with PO antibiotics, Tamsulosin, prn Pyridium, and prn pain management when medically stable. - Expected clinical course reviewed, all questions answered. - Will arrange follow-up with our service outpatient for definitive stone management. Thank you for allowing us to participate in the acute care of Ms. Magallon. Please reconsult us with additional questions, concerns or changes in patient status. Admission and Anticipated Discharge Date Admission Date: September 10, 2020 Subjective 50 yo F POD #1 s/p cystoscopy and left stent placement. Patient seen and examined at bedside this AM. She is awake and sitting up in bedside chair. Notes fatigue, but overall feeling better today. Reports mild left flank discomfort. No abdominal pain. Voiding without difficulty, dysuria improved, notes some hematuria post-op. Low appetite this AM. No nausea or vomiting. No fever or chills. Chart review: Afebrile, creatinine 1.10, WBC 24.64, Hgb 11.8, UC&S prelim gram negative bacilli. On IV Ceftriaxone. No additional concerns today. Review of Systems Constitutional: as per Subjective / HPI Gastrointestinal: as per Subjective / HPI Genitourinary: as per Subjective / HPI Physical Exam Constitutional: well developed, well nourished and comfortable; no acute distress and not ill appearing Respiratory: normal respiratory effort and able to speak in complete sentences; no respiratory distress and no labored breathing Cardiovascular: Extremities: no pedal edema Gastrointestinal (Abdomen): Inspection/Auscultation: abdomen normal to inspection; abdomen not distended Percussion/Palpation: abdomen soft; abdomen nontender and no guarding Musculoskeletal: Head/Neck/Chest: normocephalic and head atraumatic Extremities: extremities normal to inspection Skin: no rashes, warm and dry Neurologic: moves all extremities and awake Psychiatric: Orientation: alert and oriented x 3 Genitourinary: no CVA tenderness Results & Data ([facility]) Vital Signs (Past 12 Hours) Vital Signs Temp Pulse Pulse Pulse Resp BP Pulse Ox 09/11/20 07:47 37.0 C 83 17 100/66 90 09/11/20 05:33 36.7 C 77 16 92/61 L 91 09/11/20 01:30 36.8 C 75 14 94/62 L 95 09/11/20 00:30 36.6 C 73 16 102/70 95 09/10/20 23:30 36.6 C 80 16 97/66 L 97 09/10/20 23:00 36.6 C 80 16 94/64 L 100 09/10/20 22:15 37.3 C 88 16 109/75 94 09/10/20 22:05 82 16 97/56 L 94 09/10/20 21:55 37.3 C 88 18 83/60 L 96 PG Care Time/CCT Total # of Minutes Spent Total Time Spent with Patient: Total time spent is greater than 50% in coordination of care (as documented) at patient's floor/unit and/or counseling patient: Coding Level of Care Code 79881 Subseq Hosp Care Lvl 2 Diagnoses Calculus of proximal left ureter N20.1 S/P ureteral stent placement Z96.0 UTI (urinary tract infection) N39.0
[2020-09-11] MEDS: cefTRIAXone SODIUM 2,000 MG in DEXTROSE 5% 50 ML IV SCH (13:20)
[2020-09-11] MEDS ORDERED: ACETAMINOPHEN 325 MG TAB ONE (14:49)
[2020-09-11] MEDS: ACETAMINOPHEN 325 MG TAB PO PRN ×2 (14:51→20:58)
[2020-09-11] MEDS ORDERED: OXYBUTYNIN CHLORIDE 5 MG TAB PO PRN (15:05)
--- NOTE | 2020-09-11 15:05 | Hospitalist Progress Note ---
Date of Service September 11, 2020 Assessment & Plan (1) Calculus of proximal left ureter: With a longstanding h/o multiple stones including calcium oxalate, apatite, and uric acid, recently started folowing with Nephrology but [facility] urine study pending. 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 with mild renal insufficiency down to 1.1 from 1.3 -add tylenol prn, add oxybutynin prn, and Flomax qhs -continue IV rocephin -f/u final Ur x result -will need outpt Urol f/u within 2 weeks for stone management -needs to f/u with Nephrology also for metabolic workup and management of numerous stones -follow CBC, BMP in AM (2) UTI (urinary tract infection): as above (3) Tobacco abuse: counseled on cessation -declines nicotine patch at this time but is ordered (4) Leukocytosis: as above 2/2 UTI, early sepsis follow CBC in AM (5) GERD (gastroesophageal reflux disease): had some last night but now improved TUMs prn (6) Obesity (BMI 30.0-34.9): BMI 33.2 would benefit from weight loss-defer to PCP management (7) DVT prophylaxis: add SCDs Dispo-continued stay, dc to home tomorrow if improving Admission and Anticipated Discharge Date Admission Date: September 10, 2020 Subjective Pt feeling "lousy." Has a mild headache and usually drinks caffeine daily. Also has left flank pain that feels stretching in nature. Is used to smoking but declines nicotine patch. Denies current CP or SOB. Feels a little "puffy" in hands and legs from IVFs. Review of Systems Review of Systems: All systems reviewed & are unremarkable except as noted in HPI & below Physical Exam Constitutional: WD/WN, vitals as above Eyes: + anicteric sclerae Neck: trachea midline, no thyromegaly Respiratory: normal respiratory effort, lungs clear to auscultation Cardiovascular: RRR, no murmur, no edema Chest (Breasts): Chest: normal inspection of chest Gastrointestinal (Abdomen): normal bowel sounds, soft, nontender, no hepatosplenomegaly Musculoskeletal: Extremities: extremities normal to inspection; no cyanosis and no clubbing Skin: no rashes, warm and dry Neurologic: moves all extremities and awake; no focal motor deficits Psychiatric: Orientation: alert and oriented x 3 Affect: + flat affect Lymphatic: no lymphedema Results & Data Results & Data ([facility]) Vital Signs (Past 12 Hours) Vital Signs Temp Pulse Resp BP Pulse Ox 09/11/20 11:17 36.8 C 80 17 96/62 L 90 09/11/20 07:47 37.0 C 83 17 100/66 90 09/11/20 05:33 36.7 C 77 16 92/61 L 91 Laboratory Results 09/11/20 09/11/20 09/10/20 Range/Units 05:41 05:41 16:46 WBC 24.64 H D (4.8-10.8) K/uL RBC 3.81 L (4.2-5.4) M/uL Hgb 11.8 L D (12.0-16.0) g/dL Hct 35.3 L (37-47) % MCV 92.7 (80-100) fL MCH 31.0 (25-34) pg MCHC 33.4 (32-36) g/dL RDW Std Deviation 46.9 H (36.4-46.3) fL RDW Coeff of Luan 13.7 (11.5-14.5) % Plt Count 113 L (130-400) K/uL MPV 9.4 (7.4-10.4) fL Sodium 142 (136-145) mmol/L Potassium 4.2 D (3.5-5.1) mmol/L Chloride 115 H (98-107) mmol/L Carbon Dioxide 24 (21-32) mmol/L Anion Gap 3.0 (3-11) BUN 23 H (7-18) mg/dl Creatinine 1.10 (0.6-1.2) mg/dl Est Cr Clr Drug Dosing 64.6 ml/min Est GFR ( Amer) 68.8 ml/min Est GFR (Non-Af Amer) 59.3 ml/min BUN/Creatinine Ratio 20.6 H (10-20) Glucose 115 H (70-99) mg/dl Calcium 7.1 L D (8.5-10.1) mg/dl COVID-19 Eval Order SARS-CoV-2 (PCR) NEGATIVE (Negative) 09/10/20 Range/Units 16:46 WBC (4.8-10.8) K/uL RBC (4.2-5.4) M/uL Hgb (12.0-16.0) g/dL Hct (37-47) % MCV (80-100) fL MCH (25-34) pg MCHC (32-36) g/dL RDW Std Deviation (36.4-46.3) fL RDW Coeff of Luan (11.5-14.5) % Plt Count (130-400) K/uL MPV (7.4-10.4) fL Sodium (136-145) mmol/L Potassium (3.5-5.1) mmol/L Chloride (98-107) mmol/L Carbon Dioxide (21-32) mmol/L Anion Gap (3-11) BUN (7-18) mg/dl Creatinine (0.6-1.2) mg/dl Est Cr Clr Drug Dosing ml/min Est GFR ( Amer) ml/min Est GFR (Non-Af Amer) ml/min BUN/Creatinine Ratio (10-20) Glucose (70-99) mg/dl Calcium (8.5-10.1) mg/dl COVID-19 Eval Order Covid19 at [facility] SARS-CoV-2 (PCR) (Negative) PG Care Time/CCT Total # of Minutes Spent Total Time Spent with Patient: Total time spent is greater than 50% in coordination of care (as documented) at patient's floor/unit and/or counseling patient: Coding Level of Care Code 34624 Subseq Hosp Care Lvl 2 Diagnoses Calculus of proximal left ureter N20.1 UTI (urinary tract infection) N39.0 Tobacco abuse Z72.0 Leukocytosis D72.829 GERD (gastroesophageal reflux disease) K21.9 Obesity (BMI 30.0-34.9) E66.9 DVT prophylaxis Z29.9
[2020-09-11] MEDS ORDERED: TAMSULOSIN HCL 0.4 MG CAP PO SCH (21:00)
[2020-09-12 05:36] LABS: Basophils # (auto) 0.02 K/uL (0-0.2); Basophils % (auto) 0.1 %; Eosinophils # (auto) 0.12 K/uL (0-0.5); Eosinophils % (auto) 0.6 %; Hemoglobin 11.8 g/dL (12.0-16.0); Immature Granulocytes # (auto) 0.13 K/uL (0.00-0.02); Immature Granulocytes % (auto) 0.6 %; Lymphocytes # (auto) 2.48 K/uL (1.2-3.4); Lymphocytes % (auto) 11.6 %; Mean Corpuscular Hgb Conc 33.7 g/dL (32-36); Mean Corpuscular Volume 91.9 fL (80-100); Mean Platelet Volume 9.7 fL (7.4-10.4); Monocytes # (auto) 1.21 K/uL (0.11-0.59); Monocytes % (auto) 5.7 %; Neutrophils # (auto) 17.39 K/uL (1.4-6.5); Neutrophils % (auto) 81.4 %; Platelet Count 125 K/uL (130-400); RDW Coefficient of Variation 13.5 % (11.5-14.5); RDW Standard Deviation 45.7 fL (36.4-46.3); Red Blood Count 3.81 M/uL (4.2-5.4); White Blood Count 21.35 K/uL (4.8-10.8)
[2020-09-12 06:05] LABS: Calcium 7.9 mg/dl (8.5-10.1); Creatinine Clr Calc Pharmacy 94.8 ml/min; Est GFR (African American) 109.2 ml/min; Est GFR (Non-African American) 94.3 ml/min; Potassium 3.5 mmol/L (3.5-5.1)
[2020-09-12] MEDS: NICOTINE 14 MG/24 HR PATCH TD SCH (08:32)
[2020-09-12] MEDS: cefTRIAXone SODIUM 2,000 MG in DEXTROSE 5% 50 ML IV SCH (12:06)
--- NOTE | 2020-09-12 14:44 | Discharge Summary ---
Date of Service September 12, 2020 Admission HPI Per Admitting Provider 50 yo female with recurrent kidney stones from 1990. She has some of the pass spontaneously while others have required lithotripsy. She was recently treated with lithotripsy for a right kidney stone about a month ago. Patient reports that she has had general malaise, dull left flank pain that radiates to her groin with N/V and subjective fever for the past 4 days. She reports that due to the nausea, she has not been able to tolerate anything by mouth and is not interested in eating at this momenet. CT scan of the abdomen and pelvis showed a 6 mm obstructing kidney stone in the left ureteropelvic junction resulting in hydronephrosis. Urology was informed, and recommended to be admitted to the hospitalist jana and they will be consulted. Principal Diagnosis Ureterolithiasis UTI Discharge Exam Constitutional WD/WN, vitals as above Eyes + anicteric sclerae Neck trachea midline, no thyromegaly Respiratory normal respiratory effort, lungs clear to auscultation Cardiovascular RRR, no murmur, no edema Chest (Breasts) Chest: normal inspection of chest Gastrointestinal (Abdomen) normal bowel sounds, soft, nontender, no hepatosplenomegaly Musculoskeletal Extremities: extremities normal to inspection; no cyanosis and no clubbing Skin no rashes, warm and dry Neurologic moves all extremities and awake; no focal motor deficits Psychiatric Orientation: alert and oriented x 3 Lymphatic no lymphedema Discharge Data Allergies Allergy/AdvReac Type Severity Reaction Status Date / Time broccoli Allergy Severe sob and Verified 09/10/20 12:22 all over body swelling doxycycline Allergy Intermediate Vomiting, Verified 09/10/20 12:22 swelling, hives Consultations 09/10/20 18:00 Consult Urology Routine Procedures Performed Operation Date: 09/10/20 21:00 Actual Procedures p Left Ureteral Stent Insertion(Left) - Damon Adhikari DO s Cystoscopy Retrograde pyelogram (Left) - Damon Adhikari DO Ordered Studies 09/10/20 FL KUB Routine 09/10/20 13:12 CT abd pelvis IV con only Stat Hospital Course (1) Calculus of proximal left ureter: With a longstanding h/o multiple stones including calcium oxalate, apatite, and uric acid, recently started folowing with Nephrology but [facility] urine study pending. Uric acid, iPTH, and Vit D levels all normal in 06/2020 Presents with left flank pain, fevers, N/V x several days Had urgent left ureteral stent placed by Urol on 09/10 UA abnormal and growing Klebsiella in Ur cx No BCxs drawn flank pain resolved Leukocytosis up to 24k and now improving down to 21k, feeling much better, no fevers, frankie po, no N/V. 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 -dc to home wth tylenol prn, oxybutynin prn, and Flomax qhs -received IV rocephin and now convert to po cefdinir 300mg po bid x 10 more days -will need outpt Urol f/u within 2 weeks for stone management -needs to f/u with Nephrology also for metabolic workup and management of numerous stones (2) UTI (urinary tract infection): as above (3) Tobacco abuse: counseled on cessation -declines nicotine patch at this time (4) Leukocytosis: as above 2/2 UTI, early sepsis (5) GERD (gastroesophageal reflux disease): TUMs prn (6) Obesity (BMI 30.0-34.9): BMI 33.2 would benefit from weight loss-defer to PCP management (7) Diarrhea: multiple loose BMs on day of discharge, C. diff NEGATIVE is abx-associated advised return to home probiotics f/u with PCP if persists for repet C. diff testing as she has had C. diff in the past (8) Cold sore: multiple cold sores/blisters on lips on day of discharge has a h/o cold sores start Valtrex 2000mg po bid x 1 day (9) DVT prophylaxis: SCDs Dispo-dc to home Total Time Total Time Spent Total Time Spent (In Minutes): 35 min Discharge Plan Discharge Items Patient Disposition: Home - Self-Care Reason For Visit: KIDNEY STONE Discharge Diagnosis: Ureterolithiasis, UTI Cold sores, diarrhea Condition on Discharge: Good Activity: Resume your previous activity Non-emergency contact: Primary Care Provider and Urologist Call non-emergency contact if: you have any medication questions, your symptoms worsen, your pain is not controlled, your pain is worsening, your pain is un usual for you, your pain is concerning for you, you have a fever and your temperature is above 101 Follow-up/Referrals: Adhikari,Damon H., DO [Physician] - (Follow up within 1 week for stone treatment and stent removal) Zhao Chowdary MD [Primary Care Provider] - (Follow up within 1-2 weeks.) Diet: Regular Addtl Attending Provider Instructions: Please finish out the course of antibiotics as prescribed. Take the Valtrex for the cold sores. You can take Oxybutynin as needed for spasms, take Flomax every night until stent is out, and Tylenol as needed for pain. Pending Studies at Discharge: No Stand-Alone Forms: My [facility], Smoking Cessation Medications and DC Order Prescriptions: New tamsulosin 0.4 mg Capsule 0.4 mg PO HS Qty: 14 RF: 0 oxybutynin chloride 5 mg Tablet 5 mg PO BID PRN (Reason: bladder spasms) Qty: 10 RF: 0 valacyclovir [Valtrex] 1 gram tablet 2,000 mg PO Q12H 1 Days Qty: 4 RF: 0 cefdinir 300 mg capsule 300 mg PO BID 10 Days Qty: 20 RF: 0 Continued cholecalciferol (vitamin D3) 10 mcg (400 unit) capsule 10 mcg PO QAM RF: 0 Lactobacillus reuteri 100 million cell Tablet,Chewable 100 cell PO QAM RF: 0 calcium carbonate [Tums] 300 mg (750 mg) Tablet,Chewable 300 mg PO DAILY PRN (Reason: Heartburn) RF: 0 Changed acetaminophen [Tylenol] 325 mg Tablet 650 mg PO QID PRN (Reason: Pain) Qty: 0 RF: 0 Discharge Orders: Discharge Order (Routine); Ordered 09/12/20 Ordered By: Dea Cowan Admission Data Admit Date/Time: 09/10/20 18:00 Attending Provider: Dea Cowan Admit Provider: Chris Madison Primary Care Provider: Zhao Chowdary Other Providers: Rufino Paul ; Cali Hsu ; Cornelius Gordon ; Bianka Greer ; Damon Adhikari ; Selina Lam ; Marilynn Mcmullen ; Marci Horton ; Maurice Grossman ; Kirsten Cabrera ; Kristan Horton Coding Level of Care Code D/C DAY MANAGEMENT >30 MINS Diagnoses Calculus of proximal left ureter N20.1 UTI (urinary tract infection) N39.0 Tobacco abuse Z72.0 Leukocytosis D72.829 GERD (gastroesophageal reflux disease) K21.9 Obesity (BMI 30.0-34.9) E66.9 DVT prophylaxis Z29.9 Diarrhea R19.7 Cold sore B00.1
== END 2020-09-12 16:25 | disposition home or self-care (01) | DRG 654 ==
LOC: ED 10:38 → 3E 18:00 → SUATTDRO 18:00 → 3E 19:26